=== PATIENT | male | born 1980 | race Caucasian/White ===

== ENCOUNTER 2022-01-07 15:24 | Emergency (ER) | payer OTHER ==
[~2022-01-07] VITALS: Ht 175.2 cm; Wt 70.3 kg
[2022-01-07 16:55] LABS: MEAN CELL VOLUME 92.4 fl (80.0-94.0); MEAN CORPUSCULAR HGB 32.7 pg (27.0-31.0); MEAN CORPUSCULAR HGB CONC 35.4 g/dl (33.0-37.0); MEAN PLATELET VOLUME 9.5 fl (9.6-12.3); PLATELET COUNT AUTOMATED 195 10*3/uL (130-400); RED BLOOD COUNT 6.57 10*6/uL (4.50-5.90); RED CELL DISTRI WIDTH 15.3 % (0-14.5); WHITE BLOOD COUNT 12.1 10*3/uL (4.8-10.8)
[2022-01-07 17:02] LABS: HEMATOCRIT 60.7 % (42.0-52.0); MANUAL DIFF REFLEX YES
[2022-01-07 17:14] LABS: ALKALINE PHOSPHATASE 94 U/L (45-117); BUN 11 mg/dl (7-24); CHLORIDE 103 mmol/L (98-107); CREATININE 1.22 mg/dL (0.70-1.30); LIPASE 153 U/L (73-393); POTASSIUM 3.2 mmol/L (3.5-5.1); SGOT/AST 15 IU/L (3-35); SGPT/ALT 32 U/L (12-78); SODIUM 139 mmol/L (136-145); TOTAL PROTEIN 8.6 gm/dL (6.4-8.2)
[2022-01-07 17:19] LABS: ETHYL ALCOHOL < 3.0 mg/dl (<3)
[2022-01-07 17:25] LABS: BASOPHILS 1 % (0-1); PLATELET SUFFICIENCY NORMAL (NORMAL); TOTAL CELLS COUNTED 100 #CELLS
[2022-01-07 21:11] LABS: BILIRUBIN 3+ (Negative); BLOOD Negative (Negative); COLOR Orange (Yellow); GLUCOSE Trace (Negative); KETONE 2+ (Negative); LEUKO ESTERASE 1+ (Negative); NITRITE Positive (Negative); SPECIFIC GRAVITY >= 1.030 (1.001-1.030)
[2022-01-07 21:19] LABS: URINE AMPHETAMINES < 1000 (1000ng/ml); URINE BARBITURATES < 200 (200ng/ml); URINE BENZODIAZEPINES > 200 (200ng/ml); URINE CANNABINOIDS (THC) > 50 (50ng/ml); URINE COCAINE < 300 (300ng/ml); URINE METHADONE < 300 (300ng/ml); URINE OPIATES < 300 (300ng/ml)
[2022-01-07 21:35] LABS: URINE PHENCYCLIDINE < 25 (25ng/ml)
[2022-01-07 21:45] LABS: CLARITY Cloudy (Clear)
[2022-01-07 21:47] LABS: BACTERIA 1+; MUCOUS 2+; RBC 0-2 rbc/hpf (0-2)
[2022-01-08 14:13] LABS: BASO % 0.2 % (0.0-1.0); EOS % 0.2 % (1.0-4.0); HEMATOCRIT 56.2 % (42.0-52.0); LYMPH # 1.3 10*3/uL (1.3-4.4); LYMPH % 11.9 % (27.0-41.0); MEAN CELL VOLUME 94.9 fl (80.0-94.0); MEAN CORPUSCULAR HGB 32.4 pg (27.0-31.0); MEAN CORPUSCULAR HGB CONC 34.2 g/dl (33.0-37.0); MONO # 0.7 10*3/uL (0.1-1.0); MONO % 5.8 % (3.0-9.0); NEUT # 9.2 10*3/uL (2.3-7.9); NEUT % 81.5 % (47.0-73.0); PLATELET COUNT AUTOMATED 142 10*3/uL (130-400); RED BLOOD COUNT 5.92 10*6/uL (4.50-5.90); RED CELL DISTRI WIDTH 14.2 % (0-14.5); WHITE BLOOD COUNT 11.3 10*3/uL (4.8-10.8)
[2022-01-08 14:31] LABS: ALKALINE PHOSPHATASE 66 U/L (45-117); BUN 9 mg/dl (7-24); CHLORIDE 107 mmol/L (98-107); CREATININE 0.86 mg/dL (0.70-1.30); POTASSIUM 2.8 mmol/L (3.5-5.1); SGOT/AST 21 IU/L (3-35); SGPT/ALT 23 U/L (12-78); SODIUM 144 mmol/L (136-145); TOTAL PROTEIN 6.6 gm/dL (6.4-8.2)
== END 2022-01-09 06:29 | disposition left against medical advice (07) ==
LOC: ED 15:24
PROVIDERS: Emergency Medicine; Nurse Practitioner Family
DX: N39.0 Urinary tract infection, site not specified (principal); F10.20 Alcohol dependence, uncomplicated; D75.1 Secondary polycythemia; Y90.9 Presence of alcohol in blood, level not specified